=== PATIENT | male | born 1990 | race Native Hawaiian/Other Pacific Islander ===

== ENCOUNTER 2018-03-27 16:12 | Emergency (ER) | payer MEDICAID ==
[2018-03-27] MEDS ORDERED: Ketorolac INJ* 30 MG/ML 1 ML VIAL IV PUSH ONE (17:55)
[2018-03-27] MEDS ORDERED: Metoclopramide IV* 5 MG/ML 2 ML VIAL IV ONE (17:55)
[2018-03-27] MEDS ORDERED: diPHENhydraMINE IV* 50 MG/ML 1 ml VIAL (BENADRYL) IV ONE (17:55)
[2018-03-27 19:21] VITALS: BP 111/80
--- NOTE | 2018-03-27 19:49 | ED ---
Gareth Schmidt Nilda, scribed for Jonnie Jasmine MD on 03/27/18 at 1745 . Complex/Multi-Sys Presentation - HPI Summary HPI Summary: This patient is a 27 year old M presenting to [facility] with a chief complaint of constant headache for the past 5 days thats progressively worsened. The patient rates the pain 8/10 in severity. Symptoms aggravated and alleviated by nothing. Patient reports dizziness, fatigue, fever (5 days ago), and nausea, but denies vomiting and rash. 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 - History Of Current Complaint Chief Complaint: EDHeadache Time Seen by Provider: 03/27/18 17:37 Hx Obtained From: Patient Onset/Duration: Sudden Onset, Lasting Days, Still Present Timing: Constant Severity Currently: Severe Location: Pain At: - head Aggravating Factor(s): nothing Alleviating Factor(s): nothing Associated Signs And Symptoms: Positive: Other - dizziness, fatigue, fever (5 days ago), and nausea, but denies vomiting and rash. - Allergies/Home Medications Allergies/Adverse Reactions: Allergies Allergy/AdvReac Type Severity Reaction Status Date / Time No Known Allergies Allergy Verified 03/27/18 16:19 PMH/Surg Hx/FS Hx/Imm Hx Sensory History: Denies: Hx Legally Blind EENT History: Denies: Hx Deafness Infectious Disease History: No Infectious Disease History: Denies: Traveled Outside the [place] in Last 30 Days - Family History Known Family History: Positive: Diabetes - Social History Occupation: Employed Full-time Alcohol Use: None Substance Use Type: Reports: None Smoking Status (MU): Never Smoked Tobacco Review of Systems Positive: Fever, Fatigue Positive: Nausea. Negative: Vomiting Negative: Rash Neurological: Other - dizziness Positive: Headache All Other Systems Reviewed And Are Negative: Yes Physical Exam - Summary Physical Exam Summary: Appearance: Well appearing, no pain distress Skin: warm, dry, reflects adequate perfusion Head/face: normal, Globes soft, Temporal arteries nontender Eyes: EOMI, LUCHO ENT: normal Neck: supple, non-tender, No meningismus Respiratory: CTA, breath sounds present Cardiovascular: RRR, pulses symmetrical Abdomen: non-tender, soft Bowel Sounds: present Musculoskeletal: normal, strength/ROM intact Neuro: normal, sensory motor intact, A&Ox3 Triage Information Reviewed: Yes Vital Signs On Initial Exam: Initial Vitals Temp Pulse Resp BP Pulse Ox 99.0 F 63 15 140/84 98 03/27/18 16:15 03/27/18 16:15 03/27/18 16:15 03/27/18 16:15 03/27/18 16:15 Vital Signs Reviewed: Yes Diagnostics - Vital Signs Vital Signs Temp Pulse Resp BP Pulse Ox 03/27/18 16:15 99.0 F 63 15 140/84 98 - Laboratory Lab Statement: Any lab studies that have been ordered have been reviewed, and results considered in the medical decision making process. Re-Evaluation - Re-Evaluation First Eval Re-Evaluation Time: 19:18 Comment: MCKEON is gone, per pt. 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 Lyme disease testing was taken. Headache is fully relieved with treatment here. No high-risk features otherwise. Treat symptomatically. - Diagnoses Differential Diagnoses/HQI/PQRI: Other - Lyme, migraine, tension type headache, sinus headache, meningitis Provider Diagnoses: Acute headache Discharge - Sign-Out/Discharge Documenting (check all that apply): Discharge/Admit/Transfer - Discharge Plan Condition: Good Disposition: HOME Prescriptions: Promethazine TAB* [Phenergan Tab*] 25 mg PO Q8H PRN #20 tab PRN Reason: Headache Patient Education Materials: Acute Headache (ED) Print Language: SWEDISH Forms: *Work Release Referrals: [facility] [Outside] Additional Instructions: Beber mucho lquido. Ibuprofeno y Benadryl pueden ayudar. La cafena y la buena hidratacin tambin ayudarn. Retorna si es peor, nuevos sntomas u otras preocupaciones. La prueba de la enfermedad de Lyme keyshawn varios hammond. - Billing Disposition and Condition Condition: GOOD Disposition: HOME The documentation as recorded by the Gareth lange Nilda accurately reflects the service I personally performed and the decisions made by me, Jonnie Jasmine MD.
== END 2018-03-27 19:40 | disposition home or self-care (01) ==
LOC: ED 16:12
DX: R51 Headache (principal); R42 Dizziness and giddiness; R53.83 Other fatigue; R50.9 Fever, unspecified; R11.0 Nausea
CPT/HCPCS: 87476; 87798; 96374; 96375; 99282; J1200; J1885; J2765

== ENCOUNTER 2018-04-23 13:25 | Emergency (ER) | payer MEDICAID ==
[2018-04-23] MEDS ORDERED: Ibuprofen TAB* 800 MG PO ONE (14:54)
--- NOTE | 2018-04-23 16:03 | RAD ---
INDICATION: Dorsal right foot and ankle pain after a twisting injury COMPARISON: None. TECHNIQUE: 3 views of the right ankle and 3 views of the right foot were obtained. FINDINGS: The bones are normal alignment. Joint spaces appear maintained. No fracture is seen. IMPRESSION: NO RADIOGRAPHICALLY APPARENT FRACTURE OR DISLOCATION INVOLVING THE RIGHT FOOT OR ANKLE. If the patient's symptoms persist, follow-up imaging is recommended.
--- NOTE | 2018-04-23 16:19 | ED ---
Lower Extremity - HPI Summary HPI Summary: Rt ankle injury yesterday - twisted while walking. Pain and swelling over ATFL. He is able to bear weight - reports pain w/ inverting/everting only. Denies numbness, tingling, weakness. Works on a farm. Has not tried anything for pain. - History of Current Complaint Chief Complaint: EDExtremityLower Stated Complaint: RT ANKLE INJURY Time Seen by Provider: 04/23/18 13:37 Hx Obtained From: Patient Pain Intensity: 6 - Allergies/Home Medications Allergies/Adverse Reactions: Allergies Allergy/AdvReac Type Severity Reaction Status Date / Time No Known Allergies Allergy Verified 04/23/18 13:31 PMH/Surg Hx/FS Hx/Imm Hx Previously Healthy: Yes Sensory History: Denies: Hx Legally Blind, Hx Deafness Opthamlomology History: Denies: Hx Legally Blind Infectious Disease History: No Infectious Disease History: Denies: Traveled Outside the [place] in Last 30 Days - Family History Known Family History: Positive: Diabetes - Social History Occupation: Employed Full-time - [employer] Alcohol Use: None Hx Substance Use: No Substance Use Type: Reports: None Hx Tobacco Use: No Smoking Status (MU): Never Smoked Tobacco Review of Systems Positive: Arthralgia, Edema Skin: Negative Neurological: Negative Psychological: Normal All Other Systems Reviewed And Are Negative: Yes Physical Exam Triage Information Reviewed: Yes Vital Signs On Initial Exam: Initial Vitals Temp Pulse Resp BP Pulse Ox 98.7 F 64 14 126/75 99 04/23/18 13:29 04/23/18 13:29 04/23/18 13:29 04/23/18 13:29 04/23/18 13:29 Vital Signs Reviewed: Yes Appearance: Positive: Well-Appearing, No Pain Distress, Well-Nourished Skin: Positive: Warm, Skin Color Reflects Adequate Perfusion, Dry - edema w/ TTP over ATFL and TTP over dorsal MT's of Rt foot ENT: Positive: Hearing grossly normal Respiratory/Lung Sounds: Positive: Breath Sounds Present Cardiovascular: Positive: Pulses are Symmetrical in both Upper and Lower Extremities Musculoskeletal: Positive: Strength/ROM Intact, Pain @ - ATFL TTP - pain w/ inversion/eversion Neurological: Positive: Normal, Sensory/Motor Intact, Alert, Oriented to Person Place, Time, CN Intact II-III Psychiatric: Positive: Normal Diagnostics - Vital Signs Vital Signs Temp Pulse Resp BP Pulse Ox 04/23/18 13:29 98.7 F 64 14 126/75 99 - Laboratory Lab Statement: Any lab studies that have been ordered have been reviewed, and results considered in the medical decision making process. Lower Extremity Course/Dx - Course Course Of Treatment: XR : no acute fx, no dislocation - Diagnoses Provider Diagnoses: Right ankle sprain Discharge - Sign-Out/Discharge Documenting (check all that apply): Discharge/Admit/Transfer - Discharge Plan Condition: Stable Disposition: HOME Prescriptions: Ibuprofen TAB* [Motrin TAB* 600 MG] 600 mg PO Q6H PRN #20 tab PRN Reason: Pain Patient Education Materials: Ankle Sprain (ED), Ankle Stirrup Splint (ED) Forms: *Work Release Referrals: No Primary Care Phys,NOPCP [Primary Care Provider] - [facility] [Outside] Additional Instructions: REST, ICE, ELEVATE AND KEEP SPLINT IN PLACE WITH WEIGHT BEARING. You may take ibuprofen alternating with acetaminophen as needed for pain Call PCP today to schedule an appointment for 2 weeks from now. If pain resolves , you may cancel appointment. *If you develop numbness, tingling, weakness, swelling or skin discoloration, remove LEONA wrap and splint and elevate leg for 20 minutes. If symptoms persist, return to ED - Billing Disposition and Condition Condition: STABLE Disposition: Home
[2018-04-23 16:39] VITALS: BP 126/88
== END 2018-04-23 16:39 | disposition home or self-care (01) ==
LOC: ED 13:25
DX: S93.401A Sprain of unspecified ligament of right ankle, initial encounter (principal); X50.1XXA Overexertion from prolonged static or awkward postures, initial encounter; Y93.01 Activity, walking, marching and hiking; Y92.9 Unspecified place or not applicable
CPT/HCPCS: 99282; A9270-GY

== ENCOUNTER 2018-06-18 13:31 | Emergency (ER) | payer MEDICAID ==
[2018-06-18 15:32] LABS: ABS Basophils 0 10^3/ul (0-0.2); ABS Eosinophils 0.1 10^3/ul (0-0.6); ABS Lymphocytes 1.9 10^3/ul (1.0-4.8); ABS Monocytes 0.4 10^3/ul (0-0.8); ABS Nucleated RBC 0 10^3/ul; Eosinophil % 2.6 % (0-6); Hematocrit 43 % (42-52); Hemoglobin 14.7 g/dl (14.0-18.0); Lymphocyte % 34.5 % (25-47); Mean Corpuscular HGB Conc 34 g/dl (31-36); Mean Corpuscular Hemoglobin 31 pg (27-31); Mean Corpuscular Volume 91 fL (80-94); Mean Platelet Volume 7.3 um3 (7.4-10.4); Nucleated Red Blood Cells % 0.1; Platelet Count 232 10^3/ul (150-450); Red Blood Count 4.72 10^6/ul (4.00-5.40); Red Cell Distribution Width 13 % (10.5-15); White Blood Count 5.5 10^3/ul (3.5-10.8)
[2018-06-18 17:57] VITALS: BP 141/77
[2018-06-18] MEDS ORDERED: Ketorolac INJ* 30 MG/ML 1 ML VIAL IM ONE (18:22)
[2018-06-18] MEDS ORDERED: Ondansetron ODT TAB* 4 MG PO ONE (18:22)
--- NOTE | 2018-06-18 18:48 | ED ---
Headache - HPI Summary HPI Summary: 27 year male presents with headache for the past week. headache is generalized. He also admits to occasional chest pressure and palpitations. He admits to some dizziness. He also been having some nausea vomiting after eating. States has had the symptoms couple months ago before that resolved after a couple days. He admits to increased stress in his life. He denies any shortness breath. No cough. No recent illness. No abdominal pain. He has no medical conditions. no family history of any Cardiac disease. - History Of Current Complaint Chief Complaint: EDHeadache Stated Complaint: WEAKNESS Time Seen by Provider: 06/18/18 18:06 - Allergies/Home Medications Allergies/Adverse Reactions: Allergies Allergy/AdvReac Type Severity Reaction Status Date / Time No Known Allergies Allergy Verified 06/18/18 13:41 PMH/Surg Hx/FS Hx/Imm Hx Endocrine/Hematology History: Denies: Hx Anticoagulant Therapy Cardiovascular History: Denies: Hx Hypertension Sensory History: Denies: Hx Legally Blind, Hx Deafness Opthamlomology History: Denies: Hx Legally Blind Infectious Disease History: No Infectious Disease History: Denies: Traveled Outside the [place] in Last 30 Days - Family History Known Family History: Positive: Diabetes - Social History Alcohol Use: None Hx Substance Use: No Substance Use Type: Reports: None Hx Tobacco Use: No Smoking Status (MU): Never Smoked Tobacco Review of Systems Negative: Fever Positive: Palpitations, Chest Pain Negative: Shortness Of Breath Positive: Vomiting. Negative: Abdominal Pain Positive: Headache All Other Systems Reviewed And Are Negative: Yes Physical Exam Triage Information Reviewed: Yes Vital Signs On Initial Exam: Initial Vitals Temp Pulse Resp BP Pulse Ox 97.6 F 72 18 135/93 99 06/18/18 13:36 06/18/18 13:36 06/18/18 13:36 06/18/18 13:36 06/18/18 13:36 Vital Signs Reviewed: Yes Appearance: Positive: Well-Appearing Skin: Positive: Warm, Dry Head/Face: Positive: Normal Head/Face Inspection Eyes: Positive: Normal, EOMI, LUCHO, Conjunctiva Clear ENT: Positive: Normal ENT inspection, Pharynx normal, TMs normal Respiratory/Lung Sounds: Positive: Clear to Auscultation, Breath Sounds Present Cardiovascular: Positive: Normal, RRR Abdomen Description: Positive: Nontender, Soft Bowel Sounds: Positive: Present Musculoskeletal: Positive: Normal Neurological: Positive: Sensory/Motor Intact, Alert, Oriented to Person Place, Time, CN Intact II-III Psychiatric: Positive: Normal Diagnostics - Vital Signs Vital Signs Temp Pulse Resp BP Pulse Ox 06/18/18 17:55 98 F 61 16 141/77 99 06/18/18 15:09 98.3 F 61 16 128/74 100 06/18/18 13:36 97.6 F 72 18 135/93 99 - Laboratory Lab Results: Lab Results 06/18/18 06/18/18 Range/Units 15:23 15:23 WBC 5.5 (3.5-10.8) 10^3/ul RBC 4.72 (4.00-5.40) 10^6/ul Hgb 14.7 (14.0-18.0) g/dl Hct 43 (42-52) % MCV 91 (80-94) fL MCH 31 (27-31) pg MCHC 34 (31-36) g/dl RDW 13 (10.5-15) % Plt Count 232 (150-450) 10^3/ul MPV 7.3 L (7.4-10.4) um3 Neut % (Auto) 55.0 (38-83) % Lymph % (Auto) 34.5 (25-47) % [place] % (Auto) 7.2 H (0-7) % Eos % (Auto) 2.6 (0-6) % Baso % (Auto) 0.7 (0-2) % Absolute Neuts (auto) 3.0 (1.5-7.7) 10^3/ul Absolute Lymphs (auto) 1.9 (1.0-4.8) 10^3/ul Absolute Monos (auto) 0.4 (0-0.8) 10^3/ul Absolute Eos (auto) 0.1 (0-0.6) 10^3/ul Absolute Basos (auto) 0 (0-0.2) 10^3/ul Absolute Nucleated RBC 0 10^3/ul Nucleated RBC % 0.1 Sodium 137 (135-145) mmol/L Potassium 4.0 (3.5-5.0) mmol/L Chloride 105 (101-111) mmol/L Carbon Dioxide 29 (22-32) mmol/L Anion Gap 3 (2-11) mmol/L BUN 11 (6-24) mg/dL Creatinine 0.75 (0.67-1.17) mg/dL Est GFR ( Amer) 150.0 (>60) Est GFR (Non-Af Amer) 124.0 (>60) BUN/Creatinine Ratio 14.7 (8-20) Glucose 83 (70-100) mg/dL Calcium 9.7 (8.6-10.3) mg/dL Magnesium 2.2 (1.9-2.7) mg/dL Total Bilirubin 0.90 (0.2-1.0) mg/dL AST 26 (13-39) U/L ALT 30 (7-52) U/L Alkaline Phosphatase 94 (34-104) U/L C-Reactive Protein < 1.00 (<8.01) mg/L Total Protein 7.9 (6.4-8.9) g/dL Albumin 4.6 (3.2-5.2) g/dL Globulin 3.3 (2-4) g/dL Albumin/Globulin Ratio 1.4 (1-3) Lipase 40 (11.0-82.0) U/L Result Diagrams: 06/18/18 15:23 06/18/18 15:23 Lab Statement: Any lab studies that have been ordered have been reviewed, and results considered in the medical decision making process. - EKG No standard instances Cardiac Rate: NL EKG Rhythm: Sinus Rhythm EKG Interpretation: sinus rhythm Headache Course/Dx - Course Course Of Treatment: 27 year male presents with headache for the past week. headache is generalized. He also admits to occasional chest pressure and palpitations. He admits to some dizziness. He also been having some nausea vomiting after eating. States has had the symptoms couple months ago before that resolved after a couple days. He admits to increased stress in his life. He denies any shortness breath. No cough. No recent illness. No abdominal pain. He has no medical conditions. no family history of any Cardiac disease. on exam normal neuro exam. reproducible chest pain. ekg normal. labs wnl. gave toradal and zofran and feeling better. patient understand and agrees with plan. - Diagnoses Differential Diagnosis/HQI/PQRI: Migraine, Tension Headache, Viral Syndrome Provider Diagnoses: Headache, Weakness, Chest pressure Discharge - Sign-Out/Discharge Documenting (check all that apply): Patient Departure - Discharge Plan Condition: Good Disposition: HOME Prescriptions: Ibuprofen TAB* [Motrin TAB* 600 MG] 600 mg PO Q6H PRN #20 tab PRN Reason: Pain Ondansetron ODT TAB* [Zofran 4 MG Odt TAB*] 4 mg PO Q6H PRN #16 tab.odt PRN Reason: Nausea Patient Education Materials: General Headache (ED) Referrals: [facility] [Outside] Additional Instructions: take Tylenol or ibuprofen every 6 hours take zofran every 6 hours for nausea Establish care with primary Return to ED if develop any new or worsening symptoms - Billing Disposition and Condition Condition: GOOD Disposition: Home
== END 2018-06-18 19:33 | disposition home or self-care (01) ==
LOC: ED 13:31
DX: R51 Headache (principal); R53.1 Weakness; R07.89 Other chest pain; R42 Dizziness and giddiness
CPT/HCPCS: 36415; 80053; 83690; 83735; 84484; 85025; 86140; 86618; 93005; 96372; 99282; A9270-GY; J1885

== ENCOUNTER 2018-10-20 19:48 | Emergency (ER) | payer MEDICAID ==
[2018-10-20] MEDS ORDERED: NS 0.9% 1000 ML* 1,000 ML IV ONE (20:24)
[2018-10-20] MEDS ORDERED: Metoclopramide IV* 5 MG/ML 2 ML VIAL IV ONE (20:29)
[2018-10-20] MEDS ORDERED: diPHENhydraMINE PO* 25 MG PO ONE (20:32)
[2018-10-20] MEDS ORDERED: Ketorolac INJ* 30 MG/ML 1 ML VIAL IV ONE (20:32)
[2018-10-20 20:47] LABS: ABS Basophils 0 10^3/ul (0-0.2); ABS Eosinophils 0.2 10^3/ul (0-0.6); ABS Lymphocytes 2.1 10^3/ul (1.0-4.8); ABS Monocytes 0.5 10^3/ul (0-0.8); ABS Neutrophils 2.7 10^3/ul (1.5-7.7); ABS Nucleated RBC 0 10^3/ul; Eosinophil % 2.9 %; Hematocrit 43 % (42-52); Hemoglobin 14.9 g/dl (14.0-18.0); Lymphocyte % 38.2 %; Mean Corpuscular HGB Conc 35 g/dl (31-36); Mean Corpuscular Hemoglobin 32 pg (27-31); Mean Corpuscular Volume 91 fL (80-94); Mean Platelet Volume 7.3 fL (7.4-10.4); Nucleated Red Blood Cells % 0; Platelet Count 253 10^3/ul (150-450); Red Blood Count 4.71 10^6/ul (4.00-5.40); Red Cell Distribution Width 13 % (10.5-15); White Blood Count 5.5 10^3/ul (3.5-10.8)
--- NOTE | 2018-10-20 21:33 | ED ---
Influenza-Like Illness - HPI Summary HPI Summary: Patient complains of persistent diffuse MCKEON 6 days, and N/V 3 days, fatigue, body aches, sternal chest pain. Chest pain described as a pressure, intermittent, random onset, no radiation, rated 8/10. Denies prior history of headaches or chest pain. Denies contact exposure, vision change, neck stiffness , focal deficits, fever cough, sore throat, ear pain, as SOB, diarrhea, abdominal pain, change in urine, change in BM. Medical history is none. Nonsmoker. - History of Current Complaint Chief Complaint: EDGeneral Time Seen by Provider: 10/20/18 20:16 Hx Obtained From: Patient Onset/Duration: Gradual Onset Severity: Moderate Associated Signs & Symptoms: Myalgia, Headache, Vomiting - Allergy/Home Medications Allergies/Adverse Reactions: Allergies Allergy/AdvReac Type Severity Reaction Status Date / Time No Known Allergies Allergy Verified 10/20/18 19:59 Home Medications: Home Medications NK [No Home Medications Reported] 10/20/18 [History Confirmed 10/20/18] PMH/Surg Hx/FS Hx/Imm Hx Endocrine/Hematology History: Denies: Hx Anticoagulant Therapy Cardiovascular History: Denies: Hx Cardiac Arrest, Hx Hypertension History: Denies: Hx Dialysis Sensory History: Denies: Hx Legally Blind, Hx Deafness Opthamlomology History: Denies: Hx Legally Blind EENT History: Denies: Hx Deafness Neurological History: Denies: Hx CVA Psychiatric History: Denies: Hx Attention Deficit Hyperactivity Disorder, Hx Autism Infectious Disease History: No Infectious Disease History: Denies: Traveled Outside the [place] in Last 30 Days - Family History Known Family History: Positive: Diabetes - Social History Alcohol Use: None Hx Substance Use: No Substance Use Type: Reports: None Hx Tobacco Use: No Smoking Status (MU): Never Smoked Tobacco Review of Systems Constitutional: Negative Eyes: Negative ENT: Negative Positive: Chest Pain Respiratory: Negative Positive: Vomiting, Nausea Genitourinary: Negative Positive: Myalgia Skin: Negative Positive: Headache Psychological: Normal All Other Systems Reviewed And Are Negative: Yes Physical Exam - Summary Physical Exam Summary: Negative Kernig's, negative Brudzinski. Full range of motion of neck without indication of pain. Neuro exam normal. Physical exam otherwise unremarkable. Triage Information Reviewed: Yes Vital Signs On Initial Exam: Initial Vitals Temp Pulse Resp BP Pulse Ox 98.6 F 73 16 135/82 98 10/20/18 19:57 10/20/18 19:57 10/20/18 19:57 10/20/18 19:57 10/20/18 19:57 Vital Signs Reviewed: Yes Appearance: Positive: Well-Appearing Skin: Positive: Warm Head/Face: Positive: Normal Head/Face Inspection Eyes: Positive: Normal ENT: Positive: Normal ENT inspection Neck: Positive: Supple Respiratory/Lung Sounds: Positive: Clear to Auscultation Cardiovascular: Positive: Normal Abdomen Description: Positive: Nontender Musculoskeletal: Positive: Normal Neurological: Positive: Normal Psychiatric: Positive: Normal AVPU Assessment: Alert - [place]awn Coma Scale Best Eye Response: 4 - Spontaneous Best Motor Response: 6 - Obeys Commands Best Verbal Response: 5 - Oriented Coma Scale Total: 15 Diagnostics - Vital Signs Vital Signs Temp Pulse Resp BP Pulse Ox 10/20/18 21:10 76 96 10/20/18 20:48 130/79 10/20/18 20:19 77 97 10/20/18 20:18 78 127/82 97 10/20/18 19:57 98.6 F 73 16 135/82 98 - Laboratory Lab Results: Lab Results 10/20/18 10/20/18 10/20/18 Range/Units 20:40 20:40 20:40 WBC 5.5 (3.5-10.8) 10^3/ul RBC 4.71 (4.00-5.40) 10^6/ul Hgb 14.9 (14.0-18.0) g/dl Hct 43 (42-52) % MCV 91 (80-94) fL MCH 32 H (27-31) pg MCHC 35 (31-36) g/dl RDW 13 (10.5-15) % Plt Count 253 (150-450) 10^3/ul MPV 7.3 L (7.4-10.4) fL Neut % (Auto) 48.5 % Lymph % (Auto) 38.2 % [place] % (Auto) 9.8 % Eos % (Auto) 2.9 % Baso % (Auto) 0.6 % Absolute Neuts (auto) 2.7 (1.5-7.7) 10^3/ul Absolute Lymphs (auto) 2.1 (1.0-4.8) 10^3/ul Absolute Monos (auto) 0.5 (0-0.8) 10^3/ul Absolute Eos (auto) 0.2 (0-0.6) 10^3/ul Absolute Basos (auto) 0 (0-0.2) 10^3/ul Absolute Nucleated RBC 0 10^3/ul Nucleated RBC % 0 Sodium 137 (135-145) mmol/L Potassium 3.8 (3.5-5.0) mmol/L Chloride 103 (101-111) mmol/L Carbon Dioxide 27 (22-32) mmol/L Anion Gap 7 (2-11) mmol/L BUN 18 (6-24) mg/dL Creatinine 0.72 (0.67-1.17) mg/dL Est GFR ( Amer) 157.3 (>60) Est GFR (Non-Af Amer) 130.0 (>60) BUN/Creatinine Ratio 25.0 H (8-20) Glucose 108 H (70-100) mg/dL Lactic Acid 1.3 (0.5-2.0) mmol/L Calcium 9.3 (8.6-10.3) mg/dL Total Bilirubin 0.60 (0.2-1.0) mg/dL AST 32 (13-39) U/L ALT 44 (7-52) U/L Alkaline Phosphatase 121 H (34-104) U/L C-Reactive Protein < 1.00 (<8.01) mg/L Total Protein 7.6 (6.4-8.9) g/dL Albumin 4.3 (3.2-5.2) g/dL Globulin 3.3 (2-4) g/dL Albumin/Globulin Ratio 1.3 (1-3) Result Diagrams: 10/20/18 20:40 10/20/18 20:40 Lab Statement: Any lab studies that have been ordered have been reviewed, and results considered in the medical decision making process. Flu Symptom Course/Dx - Course Course Of Treatment: Patient complains of persistent diffuse MCKEON 6 days, and N/ V 3 days, fatigue, body aches, sternal chest pain. Chest pain described as a pressure, intermittent, random onset, no radiation, rated 8/10. Denies prior history of headaches or chest pain. Denies contact exposure, vision change, neck stiffness, focal deficits, fever cough, sore throat, ear pain, as SOB, diarrhea, abdominal pain, change in urine, change in BM. Medical history is none. Nonsmoker. Physical exam:Negative Kernig's, negative Brudzinski. Full range of motion of neck without indication of pain. Neuro exam normal. Physical exam otherwise unremarkable. Vital signs within normal limits and stable. Labs unremarkable except for some dehydration. EKG sinus rhythm, negative STEMI, no significant different from prior. Chest x-ray negative for acute process. Headache symptoms improved with migraine cocktail. Patient stated he felt better after hydration. - Diagnoses Provider Diagnoses: Dehydration, Headache, Viral syndrome Discharge - Sign-Out/Discharge Documenting (check all that apply): Patient Departure - Discharge Plan Condition: Stable Disposition: HOME Patient Education Materials: Dehydration (ED), Acute Headache (ED), Viral Syndrome (ED) Print Language: NORWEGI[place] Referrals: No Primary Care Phys,NOPCP [Primary Care Provider] - [facility] [Outside] Additional Instructions: Drink plenty of fluids to maintain hydration. Alternate Tylenol 650 mg with ibuprofen 600 mg every 3 hours for body aches and headache. Follow-up with primary care. Return to the ED for any new or worsening symptoms - Billing Disposition and Condition Condition: STABLE Disposition: Home
[2018-10-20 23:54] VITALS: BP 94/44
== END 2018-10-21 00:29 | disposition home or self-care (01) ==
LOC: ED 19:48
DX: R51 Headache (principal); E86.0 Dehydration; B34.9 Viral infection, unspecified
CPT/HCPCS: 36415; 71046; 80053; 83605; 85025; 86140; 87040; 93005; 96361; 96374; 96375; 99283; A9270-GY; J1885; J2765

== ENCOUNTER 2019-02-23 18:01 | Emergency (ER) | payer MEDICAID ==
--- NOTE | 2019-02-23 18:58 | ED ---
HPI Chest Pain - HPI Summary HPI Summary: This patient is a 28 year old M presenting to [facility] with a chief complaint of intermittent episodes of left anterior chest pain described as pressure at baseline that has worsened last night that persisted into this morning with SOB. Pain radiates into arms and legs described as tired with a burning sensation in the lungs. Reports headache and dizziness. Reports nausea. Denies cough, fever, vomiting, abdominal pain, urinary symptoms. Describes calf discomfort and weakness and muscle fatigue over the anterior aspect of the bilateral lower extremities, but denies calf pain specifically. Today these episodes are lasting 4-5 minutes. Patient was evaluated in October of 2018 for similar symptoms with no reported results. Patients current pain is rated 8 /10 and is at its worse is a 9/10. His PCP is a clinic in [facility]. PMHx of gastritis. Patient works at a nursery Vital signs while in room: HR 66 bpm, BP 108/67, O2 sat 98 % Patient was previously prescribed medication for gastritis, but is no longer taking any regular medications. HPI obtained through interpretation services. Entire interview and exam conducted with production coordinator. Code: [id number]. - History of Current Complaint Chief Complaint: EDChestPainROMI Time Seen by Provider: 02/23/19 18:51 Hx Obtained From: Patient, Central Supply Worker Onset/Duration: Started Hours Ago Timing: Intermittent, Lasting Minutes Pain Intensity: 8 Pain Scale Used: 0-10 Numeric Chest Pain Location: Left Anterior Chest Pain Radiates: Yes Chest Pain Radiates To:: Arm - arms and legs Character: Pressure/Squeezing Aggravating Factor(s): Nothing Alleviating Factor(s): Nothing Associated Signs and Symptoms: Positive: Headaches, Dizziness, Shortness of Breath, Nausea - Allergy/Home Medications Allergies/Adverse Reactions: Allergies Allergy/AdvReac Type Severity Reaction Status Date / Time No Known Allergies Allergy Verified 02/23/19 18:06 PMH/Surg Hx/FS Hx/Imm Hx Endocrine/Hematology History: Denies: Hx Anticoagulant Therapy Cardiovascular History: Denies: Hx Cardiac Arrest, Hx Hypertension Respiratory History: Denies: Hx Asthma GI History: Reports: Other GI Disorders - gastritis History: Denies: Hx Dialysis Sensory History: Denies: Hx Legally Blind, Hx Deafness Opthamlomology History: Denies: Hx Legally Blind Neurological History: Denies: Hx CVA Psychiatric History: Denies: Hx Attention Deficit Hyperactivity Disorder, Hx Autism - Surgical History Surgery Procedure, Year, and Place: Denies surgical history. Infectious Disease History: No Infectious Disease History: Denies: Traveled Outside the [place] in Last 30 Days - Family History Known Family History: Positive: Diabetes, Other Family History: asthma - Social History Occupation: Employed Part-time - works at a flower shop. Alcohol Use: None Hx Substance Use: No Substance Use Type: Reports: None Hx Tobacco Use: No Smoking Status (MU): Never Smoked Tobacco Review of Systems Negative: Fever, Chills Positive: Chest Pain Positive: Shortness Of Breath. Negative: Cough Positive: Nausea. Negative: Abdominal Pain, Vomiting Positive: no symptoms reported Positive: Myalgia - legs and arms. Negative: Edema Neurological: Other - dizziness Positive: Headache All Other Systems Reviewed And Are Negative: Yes Physical Exam - Summary Physical Exam Summary: Appearance: well-appearing, moderate pain distress, well-nourished Skin: Warm, color reflects adequate perfusion, dry Head: Normal Head/Face inspection, atraumatic Eyes: Conjunctiva clear ENT: Normal inspection Neck: Supple, no nodes, no JVD Respiratory: Lungs clear, normal breath sounds, no respiratory distress Cardio: RRR, No murmur, pulses normal, brisk capillary refill Abdomen: Soft, nontender Bowel sounds: Present Musculoskeletal: Strength Intact/ROM intact, no calf tenderness, no edema. Psychological: Normal Neuro: Alert, muscle tone normal, no focal deficit Triage Information Reviewed: Yes Vital Signs On Initial Exam: Initial Vitals Temp Pulse Resp BP Pulse Ox 98.4 F 84 16 152/84 99 02/23/19 18:03 02/23/19 18:03 02/23/19 18:03 02/23/19 18:03 02/23/19 18:03 Vital Signs Reviewed: Yes Diagnostics - Vital Signs Vital Signs Temp Pulse Resp BP Pulse Ox 02/23/19 18:18 87 18 144/80 99 02/23/19 18:03 98.4 F 84 16 152/84 99 - Laboratory Result Diagrams: 02/23/19 18:51 02/23/19 18:51 Lab Statement: Any lab studies that have been ordered have been reviewed, and results considered in the medical decision making process. - Radiology CXR Radiology Interpretation Completed By: ED Physician Summary of Radiographic Findings: Preliminary report with no acitve disease. - EKG 1821 Cardiac Rate: NL - 84 BPM EKG Rhythm: Sinus Rhythm EKG Comparison: No Significant Change - 12/06/18 Summary of EKG Findings: reveals nml AV/IV CT, nml QTc, and nml axis.early repolarization. no acute changes Chest Pain Course/Dx - Course Course Of Treatment: 28 year old M presenting to [facility] with a chief complaint of intermittent episodes of left anterior chest pain described as pressure at baseline that has worsened last night that persisted into this morning with SOB. Patient was seen in ED in October of 2018, previous work up reviewed. Preliminary EKG with no active disease. Bloodwork reveals glucose 124, ALT 60. Patient is given 600mg of Motrin. Results and physical exam findings discussed with patient. Patient will be discharged and is instructed to follow up with his primary care physician if his symptoms reoccur. Entire interview and exam conducted with school library media program director [id number]. Discharge - Sign-Out/Discharge Documenting (check all that apply): Patient Departure - discharge - Discharge Plan Condition: Stable Disposition: HOME Prescriptions: Ibuprofen TAB* [Motrin TAB* 600 MG] 600 mg PO Q8H #20 tab Patient Education Materials: Ibuprofen (By mouth), Chest Pain (ED), Costochondritis (ED) Print Language: MONTSERRATIAN Forms: *Work Release Referrals: Aniket Lucas MD [Medical Doctor] - 3 Days Additional Instructions: Return to the ER if you have any new or worsening symptoms. - Attestation Statements Document Initiated by Scribe: Yes Documenting Scribe: Zena Hernández Provider For Whom Scribe is Documenting (Include Credential): Jose Shaver MD Scribe Attestation: Zena Schmidt, scribed for Jose Shaver MD on 02/23/19 at [id number]. Status of Scribe Document: Ready
[2019-02-23 18:59] LABS: ABS Basophils 0 10^3/ul (0-0.2); ABS Eosinophils 0.1 10^3/ul (0-0.6); ABS Lymphocytes 1.8 10^3/ul (1.0-4.8); ABS Monocytes 0.3 10^3/ul (0-0.8); ABS Neutrophils 2.3 10^3/ul (1.5-7.7); ABS Nucleated RBC 0 10^3/ul; Eosinophil % 2.8 %; Hematocrit 41 % (36-46); Hemoglobin 14.1 g/dL (14.0-18.0); Mean Corpuscular HGB Conc 34 g/dL (31-36); Mean Corpuscular Hemoglobin 31 pg (27-31); Mean Corpuscular Volume 92 fL (80-94); Mean Platelet Volume 7.5 fL (7.4-10.4); Nucleated Red Blood Cells % 0.1; Platelet Count 239 10^3/uL (150-450); Red Cell Distribution Width 13 % (10.5-15); White Blood Count 4.6 10^3/uL (3.5-10.8)
[2019-02-23 19:16] LABS: Albumin 4.3 g/dL (3.2-5.2); Albumin/Globulin Ratio 1.4 (1-3); BUN/Creatinine Ratio 16.9 (8-20); Calcium 9.3 mg/dL (8.6-10.3); EGFR African American 122.3 (>60); EGFR Non-African American 101.1 (>60); Potassium 4.1 mmol/L (3.5-5.0); Total Bilirubin 0.7 mg/dL (0.2-1.0); Total Protein 7.3 g/dL (6.4-8.9)
[2019-02-23 19:18] LABS: Troponin I 0.01 ng/mL (<0.04)
[2019-02-23] MEDS ORDERED: Ibuprofen TAB* 600 MG PO ONE (21:49)
[2019-02-23 22:19] VITALS: BP 123/78
== END 2019-02-23 22:10 | disposition home or self-care (01) ==
LOC: ED 18:01
DX: R07.9 Chest pain, unspecified (principal); K29.70 Gastritis, unspecified, without bleeding
CPT/HCPCS: 36415; 71045; 80053; 84484; 85025; 85379; 93005; 99283; A9270-GY